=== PATIENT | female | born 1980 | race Caucasian/White ===

== ENCOUNTER 2024-11-07 23:38 | Observation (INO) ==
--- NOTE | 2024-11-07 23:53 | EKG ---
Test Reason : CHEST PAIN Blood Pressure : */* mmHG Vent. Rate : 141 BPM Atrial Rate : * BPM P-R Int : * ms QRS Dur : 80 ms QT Int : 304 ms P-R-T Axes : * 23 43 degrees QTc Int : 465 ms Atrial fibrillation with rapid ventricular response Low voltage QRS Nonspecific ST abnormality Abnormal ECG No previous ECGs available Confirmed by Eliseo Tee MD ([id number]) on 11/08/2024 7:30:15 AM Referred By: Confirmed By: Eliseo Tee MD
--- NOTE | 2024-11-08 00:03 | DR.CP ---
HPI Time Seen Time Seen by Provider: 11/08/24 00:03 PCP Primary Care Physician: Chas Complaint Chief Complaint:: Patient ambulatory in er with complaints of chest tightness, "heart feels like its fluttering", and difficulty to catch her breath". Pt sta serenity onset was 1 hour prior to arival. Heart rate during triage titrated between 110-145. 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 Past Surgical History Comment: Tubal ligation, Ablation Family History History of Family Medical Conditions: Yes Family Medical History: Cancer and Hypertension Social History Does patient currently use any type of tobacco product: No Have you used tobacco products in the last 12 months: No Type of Tobacco Use: None Does any household member use tobacco: No Alcohol Use: None Do you use any recreational Drugs:: No Lives With: Family Lives Where: Home Travel Risk Coronavirus risk:travel/contact w/high risk person: No Has patient experienced Coronavirus symptoms: No Infectious screening Have you traveled outside the country in the last 6 months?: No Isolation: Standard PE Vitals Vitals: Vital Signs Temperature 98.3 F Pulse Rate 82 Pulse Rate 84 Pulse Rate 87 Pulse Rate 86 Pulse Rate 87 Pulse Rate 122 Pulse Rate 98 Pulse Rate 104 Pulse Rate 92 Pulse Rate 83 Pulse Rate 85 Pulse Rate 85 Pulse Rate 90 Pulse Rate 88 Pulse Rate 80 Pulse Rate 90 Pulse Rate 88 Pulse Rate 104 Pulse Rate 111 Pulse Rate 85 Pulse Rate 101 Pulse Rate 85 Pulse Rate 95 Pulse Rate 116 Pulse Rate 110 Pulse Rate 108 Pulse Rate 124 Pulse Rate 129 Pulse Rate 132 Pulse Rate 126 Pulse Rate 129 Pulse Rate 117 Pulse Rate 130 Pulse Rate 140 Pulse Rate 110 Respiratory Rate 17 Respiratory Rate 18 Respiratory Rate 17 Respiratory Rate 17 Respiratory Rate 21 Respiratory Rate 15 Respiratory Rate 21 Respiratory Rate 12 Respiratory Rate 17 Respiratory Rate 15 Respiratory Rate 16 Respiratory Rate 16 Respiratory Rate 21 Respiratory Rate 16 Respiratory Rate 17 Respiratory Rate 19 Respiratory Rate 20 Respiratory Rate 18 Respiratory Rate 20 Respiratory Rate 15 Respiratory Rate 17 Respiratory Rate 19 Respiratory Rate 14 Respiratory Rate 14 Respiratory Rate 17 Respiratory Rate 17 Respiratory Rate 16 Respiratory Rate 16 Respiratory Rate 15 Respiratory Rate 17 Respiratory Rate 13 Respiratory Rate 21 Respiratory Rate 22 Respiratory Rate 21 Blood Pressure 126/58 Blood Pressure 126/61 Blood Pressure 116/56 Blood Pressure 135/62 Blood Pressure 103/73 Blood Pressure 129/88 Blood Pressure 128/63 Blood Pressure 159/85 Blood Pressure 139/78 Blood Pressure 141/73 Blood Pressure 143/68 Blood Pressure 148/65 Blood Pressure 148/68 Blood Pressure 157/79 Blood Pressure 154/73 Blood Pressure 170/77 Blood Pressure 151/91 Blood Pressure 145/86 Blood Pressure 136/64 Blood Pressure 152/72 Blood Pressure 147/77 Blood Pressure 121/80 Blood Pressure 117/79 Blood Pressure 119/62 Blood Pressure 147/71 Blood Pressure 150/80 Blood Pressure 165/108 Blood Pressure 176/93 Blood Pressure 168/122 O2 Sat by Pulse Oximetry 95 O2 Sat by Pulse Oximetry 95 O2 Sat by Pulse Oximetry 96 O2 Sat by Pulse Oximetry 97 O2 Sat by Pulse Oximetry 96 O2 Sat by Pulse Oximetry 96 O2 Sat by Pulse Oximetry 97 O2 Sat by Pulse Oximetry 95 O2 Sat by Pulse Oximetry 94 O2 Sat by Pulse Oximetry 94 O2 Sat by Pulse Oximetry 96 O2 Sat by Pulse Oximetry 96 O2 Sat by Pulse Oximetry 97 O2 Sat by Pulse Oximetry 96 O2 Sat by Pulse Oximetry 95 O2 Sat by Pulse Oximetry 98 O2 Sat by Pulse Oximetry 98 O2 Sat by Pulse Oximetry 97 O2 Sat by Pulse Oximetry 97 O2 Sat by Pulse Oximetry 97 O2 Sat by Pulse Oximetry 98 O2 Sat by Pulse Oximetry 98 O2 Sat by Pulse Oximetry 98 O2 Sat by Pulse Oximetry 98 O2 Sat by Pulse Oximetry 100 O2 Sat by Pulse Oximetry 98 O2 Sat by Pulse Oximetry 99 O2 Sat by Pulse Oximetry 100 O2 Sat by Pulse Oximetry 97 O2 Sat by Pulse Oximetry 100 ROR Labs Reviewed 11/07/24 23:56 11/07/24 23:56 Laboratory: WBC 9.3 X10^3/uL (3.6-10.0) 11/07/24 23:56 RBC 4.96 X10^6/uL (3.5-5.4) 11/07/24 23:56 Hgb 14.1 g/dL (12.0-16.0) 11/07/24 23:56 Hct 41.0 % (36.0-47.0) 11/07/24 23:56 MCV 82.7 fL (80.0-100.0) 11/07/24 23:56 MCH 28.5 pg (27.0-34.0) 11/07/24 23:56 MCHC 34.4 g/dL (33.0-35.0) 11/07/24 23:56 RDW 13.6 % (11.6-16.5) 11/07/24 23:56 Plt Count 348 X10^3/uL (150.0-450.0) 11/07/24 23:56 MPV 7.6 fL (7.4-11.0) 11/07/24 23:56 Neut % (Auto) 56.5 % (42.0-75.0) 11/07/24 23:56 Lymph % (Auto) 33.6 % (21.0-51.0) 11/07/24 23:56 [place] % (Auto) 6.7 % (0.0-13.0) 11/07/24 23:56 Eos % (Auto) 2.4 % (0.9-2.9) 11/07/24 23:56 Baso % (Auto) 0.8 % (0.2-1.0) 11/07/24 23:56 Neut # (Auto) 5.2 x10^3/uL (2.2-4.8) H 11/07/24 23:56 Lymph # (Auto) 3.1 X10^3/uL (1.3-2.9) H 11/07/24 23:56 [place] # (Auto) 0.6 x10^3/uL (0.3-0.8) 11/07/24 23:56 Eos # (Auto) 0.2 x10^3/uL (0.0-0.2) 11/07/24 23:56 Baso # (Auto) 0.1 X10^3/uL (0.0-0.1) 11/07/24 23:56 Absolute Nucleated RBC 0.0 /100WBC 11/07/24 23:56 Sodium 142 mmol/L (136-145) 11/07/24 23:56 Corrected Sodium TNP 11/07/24 23:56 Potassium 3.2 mmol/L (3.5-5.1) L 11/07/24 23:56 Chloride 103 mmol/L (98-107) 11/07/24 23:56 Carbon Dioxide 31.7 mmol/L (21-32) 11/07/24 23:56 BUN 16 mg/dL (7-18) 11/07/24 23:56 Creatinine 0.79 mg/dL (0.55-1.02) 11/07/24 23:56 Est GFR (MDRD) Af Amer > 60 (>60) 11/07/24 23:56 Est GFR (MDRD) Non-Af > 60 (>60) 11/07/24 23:56 Glucose 95 mg/dL (65-99) 11/07/24 23:56 Calcium 9.6 mg/dL (8.5-10.1) 11/07/24 23:56 Corrected Calcium TNP 11/07/24 23:56 Total Bilirubin 0.60 mg/dL (0.2-1.0) 11/07/24 23:56 AST 24 Units/L (15-37) 11/07/24 23:56 ALT 30 Units/L (12-78) 11/07/24 23:56 Alkaline Phosphatase 114 Units/L (46-116) 11/07/24 23:56 Creatine Kinase 92 Units/L (26-192) 11/07/24 23:56 Troponin I High Sens < 4.0 ng/L (4.0-60.0) L 11/07/24 23:56 B-Natriuretic Peptide 51.5 pg/mL (0-79) 11/07/24 23:56 Total Protein 7.8 g/dL (6.4-8.2) 11/07/24 23:56 Albumin 3.7 g/dL (3.4-5.0) 11/07/24 23:56 Globulin 4.1 g/dL (2.5-4.5) 11/07/24 23:56 Albumin/Globulin Ratio 0.9 Ratio (1.1-2.1) L 11/07/24 23:56 Specimen Type Clean catch urine 11/08/24 01:16 Urine Color Straw (YELLOW) 11/08/24 01:16 Urine Appearance Clear (CLEAR) 11/08/24 01:16 Urine pH 7.0 (5.0 - 8.0) 11/08/24 01:16 Ur Specific [place] 1.010 (1.000-1.030) 11/08/24 01:16 Urine Protein Negative (NEGATIVE) 11/08/24 01:16 Urine Glucose (UA) Negative (NEGATIVE) 11/08/24 01:16 Urine Ketones Negative (NEGATIVE) 11/08/24 01:16 Urine Blood 1+ (NEGATIVE) 11/08/24 01:16 Urine Nitrite Negative (NEGATIVE) 11/08/24 01:16 Urine Bilirubin Negative (NEGATIVE) 11/08/24 01:16 Urine Urobilinogen Normal (NORMAL) 11/08/24 01:16 Ur Leukocyte Esterase Negative (NEGATIVE) 11/08/24 01:16 Urine RBC 3-5 /HPF (0-3) A 11/08/24 01:16 Urine WBC 0-2 /HPF (0-5) 11/08/24 01:16 Ur Squamous Epith Cells Rare /HPF (NEGATIVE) 11/08/24 01:16 Amorphous Sediment Trace /HPF (NEGATIVE) 11/08/24 01:16 Urine Bacteria Negative /HPF (NEGATIVE) 11/08/24 01:16 Ur Culture Indicated? No/not indicated 11/08/24 01:16 Opioid Opioid Risk Tool Age (Олег box if 16-45): Yes History of Preadolescent Sexual Abuse: No Total: 1 Total Score Risk Category: Low Risk Copyright: Kulwant MONTELONGO predicting aberrant behaviors Discharge Plan Discharge Plan Patient Disposition: 01 HOME, SELF-CARE Condition: Stable Orders to Discharge Patient Discharge Orders: Transfer (Routine); Ordered 11/08/24 Ordered By: ULISES CARRINGTON
[2024-11-08 00:05] LABS: MEAN CORPUSCULAR HEMOGLOBIN 28.5 pg (27.0-34.0); RED BLOOD COUNT 4.96 X10^6/uL (3.5-5.4)
[2024-11-08 00:08] LABS: BASOPHILS # (AUTO) 0.1 X10^3/uL (0.0-0.1); BASOPHILS % (AUTO) 0.8 % (0.2-1.0); EOSINOPHILS # (AUTO) 0.2 x10^3/uL (0.0-0.2); EOSINOPHILS % (AUTO) 2.4 % (0.9-2.9); HEMOGLOBIN 14.1 g/dL (12.0-16.0); LYMPHOCYTES # (AUTO) 3.1 X10^3/uL (1.3-2.9); LYMPHOCYTES % (AUTO) 33.6 % (21.0-51.0); MEAN CORPUSCULAR HGB CONC 34.4 g/dL (33.0-35.0); MEAN CORPUSCULAR VOLUME 82.7 fL (80.0-100.0); MEAN PLATELET VOLUME 7.6 fL (7.4-11.0); MONOCYTES # (AUTO) 0.6 x10^3/uL (0.3-0.8); MONOCYTES % (AUTO) 6.7 % (0.0-13.0); NEUTROPHILS # (AUTO) 5.2 x10^3/uL (2.2-4.8); NEUTROPHILS % (AUTO) 56.5 % (42.0-75.0); PLATELET COUNT 348 X10^3/uL (150.0-450.0); RED CELL DISTRIBUTION WIDTH 13.6 % (11.6-16.5); WHITE BLOOD COUNT 9.3 X10^3/uL (3.6-10.0)
[2024-11-08 00:19] LABS: ALANINE AMINOTRANSFERASE 30 Units/L (12-78); ALBUMIN 3.7 g/dL (3.4-5.0); ALKALINE PHOSPHATASE 114 Units/L (46-116); ASPARTATE AMINO TRANSFERASE 24 Units/L (15-37); BLOOD UREA NITROGEN 16 mg/dL (7-18); CALCIUM 9.6 mg/dL (8.5-10.1); CARBON DIOXIDE 31.7 mmol/L (21-32); CHLORIDE 103 mmol/L (98-107); CREATINE KINASE 92 Units/L (26-192); CREATININE 0.79 mg/dL (0.55-1.02); GLUCOSE 95 mg/dL (65-99); POTASSIUM 3.2 mmol/L (3.5-5.1); SODIUM 142 mmol/L (136-145); TOTAL PROTEIN 7.8 g/dL (6.4-8.2); eGFR NON BLACK RACES > 60 (>60)
--- NOTE | 2024-11-08 00:20 | RAD ---
EXAM: CHEST, 1 VIEW HISTORY: Patient ambulatory in er with complaints of chest tightness, "heart feels like its fluttering", and d ifficulty to catch her breath". Pt states onset was 1 hour prior to arival. Heart rate during triage titrated between 110-145. ; ASTHMA, HTN, HEART MURMUR SX: TUBAL, HYST, ABLATION COMPARISON: None available. FINDINGS: The trachea is midline. The cardiac silhouette is unremarkable . The lungs are clear without focal infiltrate or effusion. The bony thorax is unremarkable. IMPRESSION: Normal chest THIS IS AN ELECTRONICALLY VERIFIED FINAL REPORT 11/08/2024 12:17 AM - Electronically signed by Shan Rodríguez MD
[2024-11-08] MEDS: CARDIZEM INJ 50 MG VIAL IVP ONE (00:54)
[2024-11-08] MEDS: NS 1,000 ML IV 1,000 ML IV ONE (01:02)
[2024-11-08] MEDS: CARDIZEM INJ 125 MG VIAL 125 MG in NS 100 ML IV 100 ML IV PRN (01:05)
[2024-11-08 01:31] LABS: BILIRUBIN,URINE NEGATIVE (NEGATIVE); BLOOD/HEMOGLOBIN,URINE 1+ (NEGATIVE); GLUCOSE, URINE NEGATIVE (NEGATIVE); KETONES,URINE NEGATIVE (NEGATIVE); LEUKOCYTE ESTERASE ,URINE NEGATIVE (NEGATIVE); NITRITES,URINE NEGATIVE (NEGATIVE); PROTEIN,URINE NEGATIVE (NEGATIVE); UROBILINOGEN,URINE NORMAL (NORMAL)
[2024-11-08 01:35] LABS: APPEARANCE,URINE CLEAR (CLEAR); COLOR,URINE STRAW (YELLOW)
[2024-11-08 01:43] LABS: BACTERIA,URINE NEGATIVE /HPF (NEGATIVE); SQUAMOUS EPITHELIAL CELL,UR RARE /HPF (NEGATIVE)
[2024-11-08 03:24] LABS: INR 1.01 (0.8-1.3)
--- NOTE | 2024-11-08 03:53 | EKG ---
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 Rate : 74 BPM Atrial Rate : * BPM P-R Int : * ms QRS Dur : 80 ms QT Int : 378 ms P-R-T Axes : * 48 65 degrees QTc Int : 419 ms Atrial fibrillation Abnormal ECG When compared with ECG of 07-NOV-2024 23:49, (Unconfirmed) Vent. rate has decreased BY 67 BPM Confirmed by Eliseo Tee MD ([id number]) on 11/08/2024 7:30:06 AM Referred By: Confirmed By: Eliseo Tee MD
[2024-11-08 04:23] VITALS: BMI 45.5
[2024-11-08 05:54] LABS: BASOPHILS # (AUTO) 0.1 X10^3/uL (0.0-0.1); BASOPHILS % (AUTO) 1.1 % (0.2-1.0); EOSINOPHILS # (AUTO) 0.1 x10^3/uL (0.0-0.2); EOSINOPHILS % (AUTO) 2.1 % (0.9-2.9); HEMOGLOBIN 13.2 g/dL (12.0-16.0); LYMPHOCYTES # (AUTO) 2.1 X10^3/uL (1.3-2.9); LYMPHOCYTES % (AUTO) 31.4 % (21.0-51.0); MEAN CORPUSCULAR HEMOGLOBIN 28.6 pg (27.0-34.0); MEAN CORPUSCULAR HGB CONC 34.7 g/dL (33.0-35.0); MEAN CORPUSCULAR VOLUME 82.6 fL (80.0-100.0); MEAN PLATELET VOLUME 7.6 fL (7.4-11.0); MONOCYTES # (AUTO) 0.3 x10^3/uL (0.3-0.8); NEUTROPHILS % (AUTO) 60.4 % (42.0-75.0); PLATELET COUNT 314 X10^3/uL (150.0-450.0); RED BLOOD COUNT 4.61 X10^6/uL (3.5-5.4); RED CELL DISTRIBUTION WIDTH 14.1 % (11.6-16.5); WHITE BLOOD COUNT 6.7 X10^3/uL (3.6-10.0)
[2024-11-08 06:12] LABS: ALANINE AMINOTRANSFERASE 25 Units/L (12-78); ALBUMIN 3.1 g/dL (3.4-5.0); ALKALINE PHOSPHATASE 101 Units/L (46-116); ASPARTATE AMINO TRANSFERASE 19 Units/L (15-37); BLOOD UREA NITROGEN 13 mg/dL (7-18); CALCIUM 8.6 mg/dL (8.5-10.1); CHLORIDE 106 mmol/L (98-107); COR CA(FOR HYPOALB) 9.3 mg/dL (8.5-10.1); COR NA(FOR HYPERGLY) 142 mmol/L (136-145); CREATININE 0.68 mg/dL (0.55-1.02); GLUCOSE 115 mg/dL (65-99); MAGNESIUM 1.9 mg/dL (2.0-2.9); POTASSIUM 3.1 mmol/L (3.5-5.1); SODIUM 142 mmol/L (136-145); TOTAL PROTEIN 6.7 g/dL (6.4-8.2); eGFR NON BLACK RACES > 60 (>60)
[2024-11-08] MEDS ORDERED: CONSULT PHARMACY - POTASSIUM & MAGNESIUM XX SCH (08:00)
--- NOTE | 2024-11-08 09:16 | DR.H&P ---
H&P History & Physical for Day of: H&P Date: 11/08/24 Chief Complaint Chief Complaint: Chest discomfort History of Present Illness History of Present Illness: Patient is a 44-year-old female with a past medical history of Asthma, generalized anxiety, hypertension, GERD, presenting with chest discomfort. She reports experiencing intermittent palpitations, which she attributes to stress. She recalls an episode of chest tightness and fluttering while at rest, which persisted despite her attempts to remain calm. She states she had heart flutter before and was seen by manager of software development-Dr More earlier this year, who suggested that her symptoms might be stress-related. She had stress test and echo and she was informed that all results were normal. Labs/imaging: WBC 6.7, hemoglobin 13.2, platelets 314, sodium 142, potassium 3.1, creatinine 0.68, glucose 115, troponin negative, UA negative, chest x-ray revealed no acute cardiopulmonary findings, EKG revealed atrial fibrillation. Patient is currently on a Cardizem drip. She appears to be rate controlled at this time. Will consult cardiology for further evaluation and management. Restart home medications, hold anti-hypertensives at this time. Otherwise continue to closely monitor and follow-up labs/imaging and recommendations. Past Medical History Past Medical History: Asthma and Hypertension Past Surgical History Surgical History: Hysterectomy Family History Family Medical History: Coronary Artery Disease, Heart Failure and Hypertension Social History Does patient currently use any type of tobacco product: No Have you used tobacco products in the last 12 months: No Type of Tobacco Use: None Does any household member use tobacco: No Alcohol Use: None Drug Use: None Allergies Allergies Allergy/AdvReac Type Severity Reaction Status Date / Time ceftriaxone [From Rocephin] Allergy Verified 11/07/24 23:59 methylprednisolone Allergy Verified 11/07/24 23:59 [From Solu-Medrol] Labs 11/08/24 05:24 11/08/24 05:24 Labs: Laboratory WBC 6.7 X10^3/uL (3.6-10.0) 11/08/24 05:24 RBC 4.61 X10^6/uL (3.5-5.4) 11/08/24 05:24 Hgb 13.2 g/dL (12.0-16.0) 11/08/24 05:24 Hct 38.0 % (36.0-47.0) 11/08/24 05:24 MCV 82.6 fL (80.0-100.0) 11/08/24 05:24 MCH 28.6 pg (27.0-34.0) 11/08/24 05:24 MCHC 34.7 g/dL (33.0-35.0) 11/08/24 05:24 RDW 14.1 % (11.6-16.5) 11/08/24 05:24 Plt Count 314 X10^3/uL (150.0-450.0) 11/08/24 05:24 MPV 7.6 fL (7.4-11.0) 11/08/24 05:24 Neut % (Auto) 60.4 % (42.0-75.0) 11/08/24 05:24 Lymph % (Auto) 31.4 % (21.0-51.0) 11/08/24 05:24 [place] % (Auto) 5.0 % (0.0-13.0) 11/08/24 05:24 Eos % (Auto) 2.1 % (0.9-2.9) 11/08/24 05:24 Baso % (Auto) 1.1 % (0.2-1.0) H 11/08/24 05:24 Neut # (Auto) 4.0 x10^3/uL (2.2-4.8) 11/08/24 05:24 Lymph # (Auto) 2.1 X10^3/uL (1.3-2.9) 11/08/24 05:24 [place] # (Auto) 0.3 x10^3/uL (0.3-0.8) 11/08/24 05:24 Eos # (Auto) 0.1 x10^3/uL (0.0-0.2) 11/08/24 05:24 Baso # (Auto) 0.1 X10^3/uL (0.0-0.1) 11/08/24 05:24 Absolute Nucleated RBC 0.1 /100WBC 11/08/24 05:24 PT 13.1 SECONDS (11.8-14.3) 11/07/24 23:56 INR Target Range - 11/07/24 23:56 INR 1.01 (0.8-1.3) 11/07/24 23:56 APTT 31.6 SECONDS (22.9-36.5) 11/07/24 23:56 PTT Comment - 11/07/24 23:56 Sodium 142 mmol/L (136-145) 11/08/24 05:24 Corrected Sodium 142 mmol/L (136-145) 11/08/24 05:24 Potassium 3.1 mmol/L (3.5-5.1) L 11/08/24 05:24 Chloride 106 mmol/L (98-107) 11/08/24 05:24 Carbon Dioxide 31.0 mmol/L (21-32) 11/08/24 05:24 BUN 13 mg/dL (7-18) 11/08/24 05:24 Creatinine 0.68 mg/dL (0.55-1.02) 11/08/24 05:24 Est GFR (MDRD) Af Amer > 60 (>60) 11/08/24 05:24 Est GFR (MDRD) Non-Af > 60 (>60) 11/08/24 05:24 Glucose 115 mg/dL (65-99) H 11/08/24 05:24 Calcium 8.6 mg/dL (8.5-10.1) 11/08/24 05:24 Corrected Calcium 9.3 mg/dL (8.5-10.1) 11/08/24 05:24 Magnesium 1.9 mg/dL (2.0-2.9) L 11/08/24 05:24 Total Bilirubin 0.50 mg/dL (0.2-1.0) 11/08/24 05:24 AST 19 Units/L (15-37) 11/08/24 05:24 ALT 25 Units/L (12-78) 11/08/24 05:24 Alkaline Phosphatase 101 Units/L (46-116) 11/08/24 05:24 Creatine Kinase 92 Units/L (26-192) 11/07/24 23:56 Troponin I High Sens < 4.0 ng/L (4.0-60.0) L 11/07/24 23:56 B-Natriuretic Peptide 51.5 pg/mL (0-79) 11/07/24 23:56 Total Protein 6.7 g/dL (6.4-8.2) 11/08/24 05:24 Albumin 3.1 g/dL (3.4-5.0) L 11/08/24 05:24 Globulin 3.6 g/dL (2.5-4.5) 11/08/24 05:24 Albumin/Globulin Ratio 0.9 Ratio (1.1-2.1) L 11/08/24 05:24 Specimen Type Clean catch urine 11/08/24 01:16 Urine Color Straw (YELLOW) 11/08/24 01:16 Urine Appearance Clear (CLEAR) 11/08/24 01:16 Urine pH 7.0 (5.0 - 8.0) 11/08/24 01:16 Ur Specific [place] 1.010 (1.000-1.030) 11/08/24 01:16 Urine Protein Negative (NEGATIVE) 11/08/24 01:16 Urine Glucose (UA) Negative (NEGATIVE) 11/08/24 01:16 Urine Ketones Negative (NEGATIVE) 11/08/24 01:16 Urine Blood 1+ (NEGATIVE) 11/08/24 01:16 Urine Nitrite Negative (NEGATIVE) 11/08/24 01:16 Urine Bilirubin Negative (NEGATIVE) 11/08/24 01:16 Urine Urobilinogen Normal (NORMAL) 11/08/24 01:16 Ur Leukocyte Esterase Negative (NEGATIVE) 11/08/24 01:16 Urine RBC 3-5 /HPF (0-3) A 11/08/24 01:16 Urine WBC 0-2 /HPF (0-5) 11/08/24 01:16 Ur Squamous Epith Cells Rare /HPF (NEGATIVE) 11/08/24 01:16 Amorphous Sediment Trace /HPF (NEGATIVE) 11/08/24 01:16 Urine Bacteria Negative /HPF (NEGATIVE) 11/08/24 01:16 Ur Culture Indicated? No/not indicated 11/08/24 01:16 Review of Systems Constitutional: No Symptoms Reported Eyes: No Symptoms Reported ENT: No Symptoms Reported Respiratory: No Symptoms Reported Cardiovascular: Palpitations Gastrointestinal: No Symptoms Reported Genitourinary: No Symptoms Reported Musculoskeletal: No Symptoms Reported Skin: No Symptoms Reported Neurological: No Symptoms Reported Physical Exam Vital Signs: Vital Signs Temperature 98.2 F Temperature 98.2 F Pulse Rate [Left] 79 Pulse Rate 76 Pulse Rate 74 Pulse Rate 98 Pulse Rate 87 Pulse Rate 90 Pulse Rate 79 Pulse Rate 79 Pulse Rate 79 Pulse Rate 77 Pulse Rate 84 Pulse Rate 82 Pulse Rate 84 Pulse Rate 87 Pulse Rate 86 Pulse Rate 87 Pulse Rate 122 Pulse Rate 98 Pulse Rate 104 Pulse Rate 92 Pulse Rate 83 Pulse Rate 85 Pulse Rate 85 Pulse Rate 90 Pulse Rate 88 Pulse Rate 80 Pulse Rate 90 Pulse Rate 88 Pulse Rate 104 Pulse Rate 111 Pulse Rate 85 Pulse Rate 101 Pulse Rate 85 Respiratory Rate 14 Respiratory Rate 12 Respiratory Rate 22 Respiratory Rate 16 Respiratory Rate 18 Respiratory Rate 22 Respiratory Rate 20 Respiratory Rate 18 Respiratory Rate 14 Respiratory Rate 16 Respiratory Rate 16 Respiratory Rate 17 Respiratory Rate 18 Respiratory Rate 17 Respiratory Rate 17 Respiratory Rate 21 Respiratory Rate 15 Respiratory Rate 21 Respiratory Rate 12 Respiratory Rate 17 Respiratory Rate 15 Respiratory Rate 16 Respiratory Rate 16 Respiratory Rate 21 Respiratory Rate 16 Respiratory Rate 17 Respiratory Rate 19 Respiratory Rate 20 Respiratory Rate 18 Respiratory Rate 20 Respiratory Rate 15 Respiratory Rate 17 Blood Pressure [Left Arm] 100/56 Blood Pressure 115/62 Blood Pressure 110/52 Blood Pressure 152/89 Blood Pressure 120/57 Blood Pressure 100/56 Blood Pressure 96/57 Blood Pressure 115/66 Blood Pressure 104/68 Blood Pressure 131/78 Blood Pressure 126/58 Blood Pressure 126/61 Blood Pressure 116/56 Blood Pressure 135/62 Blood Pressure 103/73 Blood Pressure 129/88 Blood Pressure 128/63 Blood Pressure 159/85 Blood Pressure 139/78 Blood Pressure 141/73 Blood Pressure 143/68 Blood Pressure 148/65 Blood Pressure 148/68 Blood Pressure 157/79 Blood Pressure 154/73 Blood Pressure 170/77 Blood Pressure 151/91 Blood Pressure 145/86 Blood Pressure 136/64 Blood Pressure 152/72 Blood Pressure 147/77 O2 Sat by Pulse Oximetry 100 O2 Sat by Pulse Oximetry 100 O2 Sat by Pulse Oximetry 94 O2 Sat by Pulse Oximetry 98 O2 Sat by Pulse Oximetry 96 O2 Sat by Pulse Oximetry 98 O2 Sat by Pulse Oximetry 97 O2 Sat by Pulse Oximetry 96 O2 Sat by Pulse Oximetry 95 O2 Sat by Pulse Oximetry 96 O2 Sat by Pulse Oximetry 95 O2 Sat by Pulse Oximetry 95 O2 Sat by Pulse Oximetry 96 O2 Sat by Pulse Oximetry 97 O2 Sat by Pulse Oximetry 96 O2 Sat by Pulse Oximetry 96 O2 Sat by Pulse Oximetry 97 O2 Sat by Pulse Oximetry 95 O2 Sat by Pulse Oximetry 94 O2 Sat by Pulse Oximetry 94 O2 Sat by Pulse Oximetry 96 O2 Sat by Pulse Oximetry 96 O2 Sat by Pulse Oximetry 97 O2 Sat by Pulse Oximetry 96 O2 Sat by Pulse Oximetry 95 O2 Sat by Pulse Oximetry 98 O2 Sat by Pulse Oximetry 98 O2 Sat by Pulse Oximetry 97 Oriented: Normal Eyes: Normal Ear: Normal Nose: Normal Throat: Normal Respiratory: Clear Throughout Cardiovascular: Irregular : Normal Auscultation: Bowel Sounds: Normal Palpation: Normal Tenderness: Normal Skin: Normal Musculoskeletal: Normal Psychiatric: Normal Mood Description: Calm and Appropriate Affect: Normal Speech Pattern: Clear and Appropriate Assessment/Plan (1) Atrial fibrillation with RVR: Status: Acute Plan: continue Cardizem gtt consult cardiology current not on anticoagulation (2) Asthma: Qualifiers: Asthma severity: unspecified severity Asthma persistence: unspecified Asthma complication type: unspecified Qualified Code(s): J45.909 - Unspecified asthma, uncomplicated Status: Acute (3) Hypertension: Qualifiers: Hypertension type: primary hypertension Qualified Code(s): I10 - Essential (primary) hypertension Status: Acute (4) AIDE (generalized anxiety disorder): Status: Acute (5) GERD (gastroesophageal reflux disease): Qualifiers: Esophagitis presence: esophagitis presence not specified Qualified Code(s): K21.9 - Gastro-esophageal reflux disease without esophagitis Status: Acute Review H&P Reviewed: Yes Patient was examined?: Yes
[2024-11-08] MEDS: K-DUR TAB 20 MEQ PO SCH (09:29)
[2024-11-08] MEDS: MAG-OX TAB PO SCH (09:29)
[2024-11-08] MEDS: ELIQUIS PO SCH (10:35)
[2024-11-08] MEDS ORDERED: ALPRAZOLAM ODT PO PRN (12:47)
--- NOTE | 2024-11-08 13:30 | DR.CONSULT ---
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[employer]- had stress test/echo in 02/11 for palp- holter showed pvcs per her- no meds except losartan/hctz for htn- yesterday acute onset of cp/fast hr- in er: afib on ekg- slowed nicely with cardizem drip- eliquis added today- still in afib- does have asthma- no c/o nw Past Medical History Past Medical History: Asthma and Hypertension Past Surgical History Surgical History: Hysterectomy Family History Family Medical History: Coronary Artery Disease, Heart Failure and Hypertension Social History Does patient currently use any type of tobacco product: No Have you used tobacco products in the last 12 months: No Type of Tobacco Use: None Does any household member use tobacco: No Alcohol Use: None Drug Use: None Medications Home Medications: ceftriaxone [From Rocephin] Allergy (Verified 11/07/24 23:59) methylprednisolone [From Solu-Medrol] Allergy (Verified 11/07/24 23:59) CONTINUE taking the following medications alprazolam 0.5 mg tablet 0.5 mg PO QDAY PRN Anxiety 11/08/24 [History] hydrochlorothiazide 12.5 mg capsule 12.5 mg PO QDAY 11/08/24 [History] losartan 50 mg tablet 50 mg PO QDAY 11/08/24 [History] omeprazole 40 mg capsule,delayed release 40 mg PO QDAY 11/08/24 [History] zolpidem 10 mg tablet 10 mg PO QHS PRN 11/08/24 [History] Physical Exam Vital Signs: Vital Signs Temperature 98.5 F Temperature 98.0 F Temperature 98.2 F Pulse Rate 75 Pulse Rate 87 Pulse Rate 80 Pulse Rate 99 Pulse Rate 79 Pulse Rate 79 Pulse Rate 93 Pulse Rate 80 Pulse Rate 86 Pulse Rate 75 Pulse Rate 76 Pulse Rate 74 Respiratory Rate 24 Respiratory Rate 20 Respiratory Rate 17 Respiratory Rate 14 Respiratory Rate 24 Respiratory Rate 14 Respiratory Rate 13 Respiratory Rate 17 Respiratory Rate 12 Respiratory Rate 14 Respiratory Rate 12 Blood Pressure 121/70 Blood Pressure 127/86 Blood Pressure 127/62 Blood Pressure 112/62 Blood Pressure 115/62 Blood Pressure 109/62 Blood Pressure 92/56 Blood Pressure 114/68 Blood Pressure 109/56 Blood Pressure 115/62 Blood Pressure 110/52 O2 Sat by Pulse Oximetry 98 O2 Sat by Pulse Oximetry 98 O2 Sat by Pulse Oximetry 98 O2 Sat by Pulse Oximetry 96 O2 Sat by Pulse Oximetry 99 O2 Sat by Pulse Oximetry 97 O2 Sat by Pulse Oximetry 99 O2 Sat by Pulse Oximetry 97 O2 Sat by Pulse Oximetry 100 O2 Sat by Pulse Oximetry 100 O2 Sat by Pulse Oximetry 100 alert ox3 nad clear lungs irreg irreg minimal edema labs: hct 38 k 3.1 got K- trop negative bnp negative tsh: normal cxr: normal ekg: afib Plan (1) Atrial fibrillation with RVR: Status: Acute Plan: agree with cardizem drip and eliquis- add low dose BB - look for RAD- consider CLYDE/CV if doesnt convert on own- gather echo/stress from [facility] [place]- replete K (2) Asthma: Status: Acute Qualifiers: Asthma severity: unspecified severity Asthma persistence: unspecified Asthma complication type: unspecified Qualified Code(s): J45.909 - Unspecified asthma, uncomplicated (3) Hypertension: Status: Acute Qualifiers: Hypertension type: primary hypertension Qualified Code(s): I10 - Essential (primary) hypertension (4) AIDE (generalized anxiety disorder): Status: Acute
[2024-11-08] MEDS: PriLOSEC PO SCH (14:53)
[2024-11-08] MEDS: KLOR-CON 10 MEQ TAB PO SCH (14:53)
[2024-11-08] MEDS: LOPRESSOR TAB 25 MG PO SCH (14:54)
[2024-11-08] MEDS: HYDROCHLOROTHIAZIDE 12.5 MG CAP PO SCH (15:02)
[2024-11-08] MEDS: NS 1,000 ML IV 1,000 ML ONE (17:34)
[2024-11-08] MEDS: AMBIEN PO PRN (20:46)
[2024-11-09 05:37] LABS: BASOPHILS # (AUTO) 0.1 X10^3/uL (0.0-0.1); BASOPHILS % (AUTO) 1.3 % (0.2-1.0); EOSINOPHILS # (AUTO) 0.1 x10^3/uL (0.0-0.2); HEMATOCRIT 39.8 % (36.0-47.0); HEMOGLOBIN 13.4 g/dL (12.0-16.0); LYMPHOCYTES # (AUTO) 2.1 X10^3/uL (1.3-2.9); LYMPHOCYTES % (AUTO) 32.7 % (21.0-51.0); MEAN CORPUSCULAR HEMOGLOBIN 28.1 pg (27.0-34.0); MEAN CORPUSCULAR HGB CONC 33.8 g/dL (33.0-35.0); MEAN CORPUSCULAR VOLUME 83.3 fL (80.0-100.0); MEAN PLATELET VOLUME 7.7 fL (7.4-11.0); MONOCYTES # (AUTO) 0.4 x10^3/uL (0.3-0.8); NEUTROPHILS # (AUTO) 3.6 x10^3/uL (2.2-4.8); PLATELET COUNT 304 X10^3/uL (150.0-450.0); RED BLOOD COUNT 4.78 X10^6/uL (3.5-5.4); RED CELL DISTRIBUTION WIDTH 13.8 % (11.6-16.5); WHITE BLOOD COUNT 6.3 X10^3/uL (3.6-10.0)
[2024-11-09 05:49] LABS: ALANINE AMINOTRANSFERASE 24 Units/L (12-78); ALBUMIN 3.2 g/dL (3.4-5.0); ALKALINE PHOSPHATASE 102 Units/L (46-116); ASPARTATE AMINO TRANSFERASE 18 Units/L (15-37); BLOOD UREA NITROGEN 16 mg/dL (7-18); CALCIUM 8.9 mg/dL (8.5-10.1); CARBON DIOXIDE 28.6 mmol/L (21-32); CHLORIDE 106 mmol/L (98-107); COR CA(FOR HYPOALB) 9.5 mg/dL (8.5-10.1); CREATININE 0.72 mg/dL (0.55-1.02); GLUCOSE 93 mg/dL (65-99); MAGNESIUM 2.2 mg/dL (2.0-2.9); POTASSIUM 3.7 mmol/L (3.5-5.1); SODIUM 142 mmol/L (136-145); TOTAL PROTEIN 6.7 g/dL (6.4-8.2); eGFR NON BLACK RACES > 60 (>60)
[2024-11-09 05:58] VITALS: O2SAT 96
--- NOTE | 2024-11-09 07:39 | NOTE.SOAP ---
Soap Note Note for Day of Date of Exam: 11/09/24 Subjective Data Subjective Data: no c/o- converted to nsr at 4 pm Objective Data Objective Data: tele: nsr lungs: no wheezing reviewed stress test: low risk- no echo to review K 3.7 Assessment Assessment: hypertension, afib- 24 hours/so now converted Plan Plan: start metoprolol suc 25 qd- cont doac for 30 days at least- consider stopping after if no recurrences but chadsvasc 2 risk ( 2% risk)
[2024-11-09 08:30] VITALS: RESP 15
[2024-11-09] MEDS: TOPROL XL PO SCH (08:50)
[2024-11-09 10:00] VITALS: BP 120/73; PULSE 75
[2024-11-10 14:49] VITALS: TEMP 98
--- NOTE | 2024-11-15 07:14 | W.DIS.FURT ---
Summary of Discharge Discharge Summary of Date Date of Exam: 11/09/24 Admission Date Date of Admission: 11/08/24 Admission Diagnosis Hospital Course: Patient is a 44-year-old female with a past medical history of Asthma, generalized anxiety, hypertension, GERD, admitted for atrial fibrillation with rvr. This morning she converted to nsr. Labs/imaging: WBC 6.3 , hemoglobin 13.4, platelets 304, sodium 142, potassium 3.7, creatinine 0.72, glucose 93. She is off the Cardizem drip. She appears to be rate controlled at this time. Cardiology-Dr Kidd consulted, recommend metoprolol succ 25mg and Eliquis for 1 month. F/u with cardiology outpatient. Patient has had lower range of blood pressures, instructed to take 1/2 of losartan until she follow up with her pcp. Pt discharged in stable condition, instructed to follow up with pcp in 3-5 days and cardiology. Vital Signs: Vital Signs (72 hours) 11/07/24 23:45 11/07/24 23:57 11/08/24 00:00 Temperature 98.3 F Pulse Rate 110 H 140 H 130 H Pulse Rate [Left] Respiratory Rate 21 22 21 Blood Pressure 168/122 Blood Pressure [Left Arm] O2 Sat by Pulse Oximetry 100 97 100 Oxygen Delivery Method Room Air Room Air Oxygen Flow Rate FIO2% 11/08/24 00:13 11/08/24 00:13 11/08/24 00:15 Temperature Pulse Rate 117 H 129 H Pulse Rate [Left] Respiratory Rate 13 17 Blood Pressure 176/93 Blood Pressure [Left Arm] O2 Sat by Pulse Oximetry 99 98 Oxygen Delivery Method Room Air Room Air Oxygen Flow Rate FIO2% 11/08/24 00:30 11/08/24 00:30 11/08/24 00:45 Temperature Pulse Rate 126 H 132 H Pulse Rate [Left] Respiratory Rate 15 16 Blood Pressure 165/108 Blood Pressure [Left Arm] O2 Sat by Pulse Oximetry 100 Oxygen Delivery Method Oxygen Flow Rate FIO2% 11/08/24 00:51 11/08/24 00:51 11/08/24 00:55 Temperature Pulse Rate 129 H Pulse Rate [Left] Respiratory Rate 16 Blood Pressure 150/80 147/71 Blood Pressure [Left Arm] O2 Sat by Pulse Oximetry 98 Oxygen Delivery Method Oxygen Flow Rate FIO2% 11/08/24 00:55 11/08/24 00:58 11/08/24 00:58 Temperature Pulse Rate 124 H 108 H Pulse Rate [Left] Respiratory Rate 17 17 Blood Pressure 119/62 Blood Pressure [Left Arm] O2 Sat by Pulse Oximetry 98 98 Oxygen Delivery Method Oxygen Flow Rate FIO2% 11/08/24 01:00 11/08/24 01:01 11/08/24 01:01 Temperature Pulse Rate 110 H 116 H Pulse Rate [Left] Respiratory Rate 14 14 Blood Pressure 117/79 Blood Pressure [Left Arm] O2 Sat by Pulse Oximetry 98 97 Oxygen Delivery Method Oxygen Flow Rate FIO2% 11/08/24 01:05 11/08/24 01:05 11/08/24 01:10 Temperature Pulse Rate 95 H Pulse Rate [Left] Respiratory Rate 19 Blood Pressure 121/80 147/77 Blood Pressure [Left Arm] O2 Sat by Pulse Oximetry 97 Oxygen Delivery Method Oxygen Flow Rate FIO2% 11/08/24 01:10 11/08/24 01:15 11/08/24 01:15 Temperature Pulse Rate 85 101 H Pulse Rate [Left] Respiratory Rate 17 15 Blood Pressure 152/72 Blood Pressure [Left Arm] O2 Sat by Pulse Oximetry 97 98 Oxygen Delivery Method Oxygen Flow Rate FIO2% 11/08/24 01:20 11/08/24 01:20 11/08/24 01:25 Temperature Pulse Rate 85 Pulse Rate [Left] Respiratory Rate 20 Blood Pressure 136/64 145/86 Blood Pressure [Left Arm] O2 Sat by Pulse Oximetry 98 Oxygen Delivery Method Oxygen Flow Rate FIO2% 11/08/24 01:25 11/08/24 01:30 11/08/24 01:30 Temperature Pulse Rate 111 H 104 H Pulse Rate [Left] Respiratory Rate 18 20 Blood Pressure 151/91 Blood Pressure [Left Arm] O2 Sat by Pulse Oximetry Oxygen Delivery Method Oxygen Flow Rate FIO2% 11/08/24 01:36 11/08/24 01:36 11/08/24 01:41 Temperature Pulse Rate 88 Pulse Rate [Left] Respiratory Rate 19 Blood Pressure 170/77 154/73 Blood Pressure [Left Arm] O2 Sat by Pulse Oximetry 95 Oxygen Delivery Method Oxygen Flow Rate FIO2% 11/08/24 01:41 11/08/24 01:45 11/08/24 01:45 Temperature Pulse Rate 90 80 Pulse Rate [Left] Respiratory Rate 17 16 Blood Pressure 157/79 Blood Pressure [Left Arm] O2 Sat by Pulse Oximetry 96 97 Oxygen Delivery Method Oxygen Flow Rate FIO2% 11/08/24 01:51 11/08/24 01:51 11/08/24 01:56 Temperature Pulse Rate 88 90 Pulse Rate [Left] Respiratory Rate 21 16 Blood Pressure 148/68 Blood Pressure [Left Arm] O2 Sat by Pulse Oximetry 96 96 Oxygen Delivery Method Oxygen Flow Rate FIO2% 11/08/24 01:56 11/08/24 02:00 11/08/24 02:00 Temperature Pulse Rate 85 Pulse Rate [Left] Respiratory Rate 16 Blood Pressure 148/65 143/68 Blood Pressure [Left Arm] O2 Sat by Pulse Oximetry 94 L Oxygen Delivery Method Oxygen Flow Rate FIO2% 11/08/24 02:05 11/08/24 02:05 11/08/24 02:10 Temperature Pulse Rate 85 Pulse Rate [Left] Respiratory Rate 15 Blood Pressure 141/73 139/78 Blood Pressure [Left Arm] O2 Sat by Pulse Oximetry 94 L Oxygen Delivery Method Oxygen Flow Rate FIO2% 11/08/24 02:10 11/08/24 02:15 11/08/24 02:15 Temperature Pulse Rate 83 92 H Pulse Rate [Left] Respiratory Rate 17 12 Blood Pressure 159/85 Blood Pressure [Left Arm] O2 Sat by Pulse Oximetry 95 97 Oxygen Delivery Method Oxygen Flow Rate FIO2% 11/08/24 02:21 11/08/24 02:21 11/08/24 02:22 Temperature Pulse Rate 104 H Pulse Rate [Left] Respiratory Rate 21 Blood Pressure 128/63 129/88 Blood Pressure [Left Arm] O2 Sat by Pulse Oximetry Oxygen Delivery Method Oxygen Flow Rate FIO2% 11/08/24 02:22 11/08/24 02:26 11/08/24 02:26 Temperature Pulse Rate 98 H 122 H Pulse Rate [Left] Respiratory Rate 15 Blood Pressure 103/73 Blood Pressure [Left Arm] O2 Sat by Pulse Oximetry 96 Oxygen Delivery Method Oxygen Flow Rate FIO2% 11/08/24 02:30 11/08/24 02:33 11/08/24 02:33 Temperature Pulse Rate 87 86 Pulse Rate [Left] Respiratory Rate 21 17 Blood Pressure 135/62 Blood Pressure [Left Arm] O2 Sat by Pulse Oximetry 96 97 Oxygen Delivery Method Oxygen Flow Rate FIO2% 11/08/24 02:35 11/08/24 02:35 11/08/24 02:40 Temperature Pulse Rate 87 Pulse Rate [Left] Respiratory Rate 17 Blood Pressure 116/56 126/61 Blood Pressure [Left Arm] O2 Sat by Pulse Oximetry 96 Oxygen Delivery Method Oxygen Flow Rate FIO2% 11/08/24 02:40 11/08/24 02:45 11/08/24 02:45 Temperature Pulse Rate 84 82 Pulse Rate [Left] Respiratory Rate 18 17 Blood Pressure 126/58 Blood Pressure [Left Arm] O2 Sat by Pulse Oximetry 95 95 Oxygen Delivery Method Oxygen Flow Rate FIO2% 11/08/24 02:51 11/08/24 02:51 11/08/24 02:55 Temperature Pulse Rate 84 77 Pulse Rate [Left] Respiratory Rate 16 16 Blood Pressure 131/78 Blood Pressure [Left Arm] O2 Sat by Pulse Oximetry 96 95 Oxygen Delivery Method Oxygen Flow Rate FIO2% 11/08/24 02:55 11/08/24 03:00 11/08/24 03:00 Temperature Pulse Rate 79 Pulse Rate [Left] Respiratory Rate 14 Blood Pressure 104/68 115/66 Blood Pressure [Left Arm] O2 Sat by Pulse Oximetry 96 Oxygen Delivery Method Oxygen Flow Rate FIO2% 11/08/24 03:05 11/08/24 03:05 11/08/24 03:14 Temperature Pulse Rate 79 Pulse Rate [Left] 79 Respiratory Rate 18 22 Blood Pressure 96/57 Blood Pressure [Left Arm] 100/56 O2 Sat by Pulse Oximetry 97 96 Oxygen Delivery Method Room Air Oxygen Flow Rate FIO2% 11/08/24 03:13 11/08/24 03:13 11/08/24 03:15 Temperature Pulse Rate 79 90 Pulse Rate [Left] Respiratory Rate 20 18 Blood Pressure 100/56 Blood Pressure [Left Arm] O2 Sat by Pulse Oximetry 98 Oxygen Delivery Method Oxygen Flow Rate FIO2% 11/08/24 04:00 11/08/24 03:20 11/08/24 04:03 Temperature 98.2 F Pulse Rate 87 Pulse Rate [Left] Respiratory Rate 16 Blood Pressure 120/57 Blood Pressure [Left Arm] O2 Sat by Pulse Oximetry 98 Oxygen Delivery Method Nasal Cannula Room Air Nasal Cannula Oxygen Flow Rate 2 2 FIO2% 28 11/08/24 05:00 11/08/24 05:57 11/08/24 07:00 Temperature 98.2 F Pulse Rate 98 H 74 76 Pulse Rate [Left] Respiratory Rate 22 12 14 Blood Pressure 152/89 110/52 115/62 Blood Pressure [Left Arm] O2 Sat by Pulse Oximetry 94 L 100 100 Oxygen Delivery Method Nasal Cannula Nasal Cannula Nasal Cannula Oxygen Flow Rate 2 2 2 FIO2% 11/08/24 08:16 11/08/24 07:30 11/08/24 08:00 Temperature 98.0 F Pulse Rate 75 86 Pulse Rate [Left] Respiratory Rate 12 17 Blood Pressure 109/56 114/68 Blood Pressure [Left Arm] O2 Sat by Pulse Oximetry 100 97 Oxygen Delivery Method Nasal Cannula Oxygen Flow Rate 2 FIO2% 28 11/08/24 08:31 11/08/24 09:01 11/08/24 09:31 Temperature Pulse Rate 80 93 H 79 Pulse Rate [Left] Respiratory Rate 13 14 24 Blood Pressure 92/56 109/62 115/62 Blood Pressure [Left Arm] O2 Sat by Pulse Oximetry 99 97 99 Oxygen Delivery Method Oxygen Flow Rate FIO2% 11/08/24 10:01 11/08/24 10:31 11/08/24 11:01 Temperature Pulse Rate 79 99 H 80 Pulse Rate [Left] Respiratory Rate 14 17 20 Blood Pressure 112/62 127/62 127/86 Blood Pressure [Left Arm] O2 Sat by Pulse Oximetry 96 98 98 Oxygen Delivery Method Oxygen Flow Rate FIO2% 11/08/24 11:30 11/08/24 12:11 11/08/24 07:00 Temperature 98.5 F Pulse Rate 87 75 Pulse Rate [Left] Respiratory Rate 24 Blood Pressure 121/70 Blood Pressure [Left Arm] O2 Sat by Pulse Oximetry 98 Oxygen Delivery Method Room Air Oxygen Flow Rate FIO2% 11/08/24 13:01 11/08/24 14:00 11/08/24 14:52 Temperature Pulse Rate 86 78 80 Pulse Rate [Left] Respiratory Rate 15 15 20 Blood Pressure 118/76 111/80 94/65 Blood Pressure [Left Arm] O2 Sat by Pulse Oximetry 100 94 L 97 Oxygen Delivery Method Oxygen Flow Rate FIO2% 11/08/24 15:00 11/08/24 16:00 11/08/24 17:00 Temperature 98.4 F Pulse Rate 95 H 75 75 Pulse Rate [Left] Respiratory Rate 16 16 12 Blood Pressure 110/65 122/79 Blood Pressure [Left Arm] O2 Sat by Pulse Oximetry 98 100 98 Oxygen Delivery Method Oxygen Flow Rate FIO2% 11/08/24 17:01 11/08/24 17:01 11/08/24 18:00 Temperature Pulse Rate 73 Pulse Rate [Left] Respiratory Rate 16 Blood Pressure 109/58 113/58 Blood Pressure [Left Arm] O2 Sat by Pulse Oximetry 98 Oxygen Delivery Method Oxygen Flow Rate FIO2% 11/08/24 18:00 11/08/24 19:00 11/08/24 19:00 Temperature Pulse Rate 74 73 Pulse Rate [Left] Respiratory Rate 14 18 Blood Pressure 131/63 Blood Pressure [Left Arm] O2 Sat by Pulse Oximetry 98 96 Oxygen Delivery Method Room Air Room Air Oxygen Flow Rate FIO2% 11/08/24 20:00 11/08/24 21:00 11/08/24 22:00 Temperature Pulse Rate 68 67 71 Pulse Rate [Left] Respiratory Rate 15 13 14 Blood Pressure 96/59 131/63 102/55 Blood Pressure [Left Arm] O2 Sat by Pulse Oximetry 97 95 95 Oxygen Delivery Method Room Air Room Air Room Air Oxygen Flow Rate FIO2% 11/08/24 23:00 11/09/24 00:00 11/09/24 01:00 Temperature 97.8 F Pulse Rate 69 67 71 Pulse Rate [Left] Respiratory Rate 12 13 16 Blood Pressure 86/51 107/53 103/57 Blood Pressure [Left Arm] O2 Sat by Pulse Oximetry 96 95 97 Oxygen Delivery Method Room Air Room Air Room Air Oxygen Flow Rate FIO2% 11/09/24 02:42 11/09/24 01:56 11/09/24 04:00 Temperature 98.2 F Pulse Rate 67 75 60 Pulse Rate [Left] Respiratory Rate 12 12 12 Blood Pressure 106/58 103/57 101/57 Blood Pressure [Left Arm] O2 Sat by Pulse Oximetry 96 96 96 Oxygen Delivery Method Room Air Room Air Room Air Oxygen Flow Rate FIO2% 11/09/24 04:55 11/09/24 05:57 11/09/24 07:00 Temperature Pulse Rate 68 60 68 Pulse Rate [Left] Respiratory Rate 14 12 12 Blood Pressure 101/57 103/55 Blood Pressure [Left Arm] O2 Sat by Pulse Oximetry 97 96 95 Oxygen Delivery Method Room Air Room Air Oxygen Flow Rate FIO2% 11/09/24 07:01 11/09/24 07:01 11/09/24 08:00 Temperature Pulse Rate 80 78 Pulse Rate [Left] Respiratory Rate 26 H 24 Blood Pressure 121/69 Blood Pressure [Left Arm] O2 Sat by Pulse Oximetry 97 96 Oxygen Delivery Method Oxygen Flow Rate FIO2% 11/09/24 08:01 11/09/24 08:01 Temperature Pulse Rate 69 Pulse Rate [Left] Respiratory Rate 15 Blood Pressure 116/87 Blood Pressure [Left Arm] O2 Sat by Pulse Oximetry 96 Oxygen Delivery Method Oxygen Flow Rate FIO2% Labs: Laboratory Last Values WBC 6.3 X10^3/uL (3.6-10.0) 11/09/24 05:11 RBC 4.78 X10^6/uL (3.5-5.4) 11/09/24 05:11 Hgb 13.4 g/dL (12.0-16.0) 11/09/24 05:11 Hct 39.8 % (36.0-47.0) 11/09/24 05:11 MCV 83.3 fL (80.0-100.0) 11/09/24 05:11 MCH 28.1 pg (27.0-34.0) 11/09/24 05:11 MCHC 33.8 g/dL (33.0-35.0) 11/09/24 05:11 RDW 13.8 % (11.6-16.5) 11/09/24 05:11 Plt Count 304 X10^3/uL (150.0-450.0) 11/09/24 05:11 MPV 7.7 fL (7.4-11.0) 11/09/24 05:11 Neut % (Auto) 57.0 % (42.0-75.0) 11/09/24 05:11 Lymph % (Auto) 32.7 % (21.0-51.0) 11/09/24 05:11 [place] % (Auto) 7.0 % (0.0-13.0) 11/09/24 05:11 Eos % (Auto) 2.0 % (0.9-2.9) 11/09/24 05:11 Baso % (Auto) 1.3 % (0.2-1.0) H 11/09/24 05:11 Neut # (Auto) 3.6 x10^3/uL (2.2-4.8) 11/09/24 05:11 Lymph # (Auto) 2.1 X10^3/uL (1.3-2.9) 11/09/24 05:11 [place] # (Auto) 0.4 x10^3/uL (0.3-0.8) 11/09/24 05:11 Eos # (Auto) 0.1 x10^3/uL (0.0-0.2) 11/09/24 05:11 Baso # (Auto) 0.1 X10^3/uL (0.0-0.1) 11/09/24 05:11 Absolute Nucleated RBC 0.1 /100WBC 11/09/24 05:11 PT 13.1 SECONDS (11.8-14.3) 11/07/24 23:56 INR Target Range - 11/07/24 23:56 INR 1.01 (0.8-1.3) 11/07/24 23:56 APTT 31.6 SECONDS (22.9-36.5) 11/07/24 23:56 PTT Comment - 11/07/24 23:56 Sodium 142 mmol/L (136-145) 11/09/24 05:11 Corrected Sodium TNP 11/09/24 05:11 Potassium 3.7 mmol/L (3.5-5.1) 11/09/24 05:11 Chloride 106 mmol/L (98-107) 11/09/24 05:11 Carbon Dioxide 28.6 mmol/L (21-32) 11/09/24 05:11 BUN 16 mg/dL (7-18) 11/09/24 05:11 Creatinine 0.72 mg/dL (0.55-1.02) 11/09/24 05:11 Est GFR (MDRD) Af Amer > 60 (>60) 11/09/24 05:11 Est GFR (MDRD) Non-Af > 60 (>60) 11/09/24 05:11 Glucose 93 mg/dL (65-99) 11/09/24 05:11 Calcium 8.9 mg/dL (8.5-10.1) 11/09/24 05:11 Corrected Calcium 9.5 mg/dL (8.5-10.1) 11/09/24 05:11 Magnesium 2.2 mg/dL (2.0-2.9) 11/09/24 05:11 Total Bilirubin 0.50 mg/dL (0.2-1.0) 11/09/24 05:11 AST 18 Units/L (15-37) 11/09/24 05:11 ALT 24 Units/L (12-78) 11/09/24 05:11 Alkaline Phosphatase 102 Units/L (46-116) 11/09/24 05:11 Creatine Kinase 92 Units/L (26-192) 11/07/24 23:56 Troponin I High Sens < 4.0 ng/L (4.0-60.0) L 11/07/24 23:56 B-Natriuretic Peptide 51.5 pg/mL (0-79) 11/07/24 23:56 Total Protein 6.7 g/dL (6.4-8.2) 11/09/24 05:11 Albumin 3.2 g/dL (3.4-5.0) L 11/09/24 05:11 Globulin 3.5 g/dL (2.5-4.5) 11/09/24 05:11 Albumin/Globulin Ratio 0.9 Ratio (1.1-2.1) L 11/09/24 05:11 TSH 3rd Generation 2.825 uIU/mL (0.358-3.74) 11/08/24 05:24 Specimen Type Clean catch urine 11/08/24 01:16 Urine Color Straw (YELLOW) 11/08/24 01:16 Urine Appearance Clear (CLEAR) 11/08/24 01:16 Urine pH 7.0 (5.0 - 8.0) 11/08/24 01:16 Ur Specific Peck 1.010 (1.000-1.030) 11/08/24 01:16 Urine Protein Negative (NEGATIVE) 11/08/24 01:16 Urine Glucose (UA) Negative (NEGATIVE) 11/08/24 01:16 Urine Ketones Negative (NEGATIVE) 11/08/24 01:16 Urine Blood 1+ (NEGATIVE) 11/08/24 01:16 Urine Nitrite Negative (NEGATIVE) 11/08/24 01:16 Urine Bilirubin Negative (NEGATIVE) 11/08/24 01:16 Urine Urobilinogen Normal (NORMAL) 11/08/24 01:16 Ur Leukocyte Esterase Negative (NEGATIVE) 11/08/24 01:16 Urine RBC 3-5 /HPF (0-3) A 11/08/24 01:16 Urine WBC 0-2 /HPF (0-5) 11/08/24 01:16 Ur Squamous Epith Cells Rare /HPF (NEGATIVE) 11/08/24 01:16 Amorphous Sediment Trace /HPF (NEGATIVE) 11/08/24 01:16 Urine Bacteria Negative /HPF (NEGATIVE) 11/08/24 01:16 Ur Culture Indicated? No/not indicated 11/08/24 01:16 Reason For Visit: AFIB W/RVR Discharge Date Discharge Date: 11/09/24 Discharge Diagnosis All Active Problems (Updated 11/08/24 @ 09:16 by Robbie Thao MD) GERD (gastroesophageal reflux disease) (Acute) AIDE (generalized anxiety disorder) (Acute) Hypertension (Acute) Asthma (Acute) Atrial fibrillation with RVR (Acute) Plan of Treatment: Continue with present treatment and follow up plan. Pt is to keep follow up appointment as instructed and take medications as ordered. Discharge Medications Discharge Medications: ceftriaxone [From Rocephin] Allergy (Verified 11/07/24 23:59) methylprednisolone [From Solu-Medrol] Allergy (Verified 11/07/24 23:59) CONTINUE taking the following medications alprazolam 0.5 mg tablet 0.5 mg PO QDAY PRN Anxiety 11/08/24 [History] hydrochlorothiazide 12.5 mg capsule 12.5 mg PO QDAY 11/08/24 [History] omeprazole 40 mg capsule,delayed release 40 mg PO QDAY 11/08/24 [History] zolpidem 10 mg tablet 10 mg PO QHS PRN 11/08/24 [History] New Prescriptions apixaban 5 mg tablet (Eliquis) 5 mg PO BID 30 days #60 tabs 11/09/24 [Rx] losartan 50 mg tablet 25 mg PO QDAY 30 days #15 tabs 11/09/24 [Rx] metoprolol succinate 25 mg tablet,extended release 24 hr 25 mg PO DAILY 30 days #30 tabs 11/09/24 [Rx] Discharge Plan Discharge Plan Hospital Course: Patient is a 44-year-old female with a past medical history of Asthma, generalized anxiety, hypertension, GERD, admitted for atrial fibrillation with rvr. This morning she converted to nsr. Labs/imaging: WBC 6.3 , hemoglobin 13.4, platelets 304, sodium 142, potassium 3.7, creatinine 0.72, glucose 93. She is off the Cardizem drip. She appears to be rate controlled at this time. Cardiology-Dr Kidd consulted, recommend metoprolol succ 25mg and Eliquis for 1 month. F/u with cardiology outpatient. Patient has had lower range of blood pressures, instructed to take 1/2 of losartan until she follow up with her pcp. Pt discharged in stable condition, instructed to follow up with pcp in 3-5 days and cardiology. Patient Disposition: 01 HOME, SELF-CARE Condition: Stable Health Concerns: Post Hospitalization: new medications and changes needed to prevent readmission or further decline. Pt educated and given instructions on all concerns. Care Plan Goals: Problem: Cardiac Complications Goal: Early Recognition of cardiac complications for prompt intervention Instructions: Follow provided instructions. Follow up with primary physician as directed. Contact primary care physician or report to the closest Emergency Room if condition worsens. Plan of Treatment: Continue with present treatment and follow up plan. Pt is to keep follow up appointment as instructed and take medications as ordered. Prescriptions: New metoprolol succinate 25 mg Tablet Extended Release 24 Hr 25 mg PO DAILY 30 Days Qty: 30 0RF Eliquis 5 mg Tablet 5 mg PO BID 30 Days Qty: 60 0RF Continued omeprazole 40 mg Capsule,Delayed Release(Dr/Ec) 40 mg PO QDAY alprazolam 0.5 mg Tablet 0.5 mg PO QDAY PRN (Reason: Anxiety) hydrochlorothiazide 12.5 mg Capsule 12.5 mg PO QDAY zolpidem 10 mg Tablet 10 mg PO QHS PRN Changed losartan 50 mg Tablet 25 mg PO QDAY 30 Days Qty: 15 0RF Orders to Discharge Patient Discharge Orders: Discharge (Routine); Ordered 11/09/24 Ordered By: Robbie Thao Follow ups/Referrals Follow ups/Referrals: COSTA KIDD MD [STAFF PHYSICIAN] - 11/16/24 11:20 am NATY FLEMING [REFERRING] - 11/20/24 8:45 am Instructions Instructions: Hypertension, Adult, [id number], Managing Your Hypertension, Atrial Fibrillation, [id number] Stand Alone Forms: Excuse From Work or School, Find Help Web Site, Post Hospital Follow Up Care
== END 2024-11-09 12:00 | disposition home or self-care (01) ==
LOC: ER 23:38 → ICU 11-08 02:48 → INTOOBSV 11-08 02:48 → ICU 11-08 03:20
PROVIDERS: ADMIT Family Medicine; ATTEND Family Medicine
DX: J45.909 Unspecified asthma, uncomplicated; E87.6 Hypokalemia; R94.31 Abnormal electrocardiogram [ECG] [EKG]; I48.91 Unspecified atrial fibrillation; E83.42 Hypomagnesemia; K21.9 Gastro-esophageal reflux disease without esophagitis; Z65.8 Other specified problems related to psychosocial circumstances; I10 Essential (primary) hypertension; R07.89 Other chest pain; F41.1 Generalized anxiety disorder